=== PATIENT | male | born 1940 | race Native Hawaiian/Other Pacific Islander ===

== ENCOUNTER 2022-01-22 20:06 | Emergency (ER) | payer OTHER ==
[~2022-01-22] VITALS: Ht 180.3 cm; Wt 95.3 kg
[2022-01-22 21:09] LABS: PLATELET COUNT 139 K/uL (142-355)
[2022-01-22 21:17] LABS: POTASSIUM 4.2 mmol/L (3.6-5.2)
[2022-01-22 21:28] LABS: PARTIAL THROMBOPLASTIN TIME 25.5 SECONDS (24.5-33.6)
[2022-01-23 01:10] VITALS: BP 147/96; TEMP 98
== END 2022-01-23 01:10 | disposition short-term general hospital (02) ==
LOC: ED 20:06
PROVIDERS: Family Medicine
PROC: 2W3CX1Z Immobilization of Right Lower Arm using Splint (ICD-10-PCS; principal; 2022-01-22)
DX: I50.9 Heart failure, unspecified (principal); I48.91 Unspecified atrial fibrillation; I89.0 Lymphedema, not elsewhere classified; S50.311A Abrasion of right elbow, initial encounter; S60.511A Abrasion of right hand, initial encounter; S62.356A Nondisplaced fracture of shaft of fifth metacarpal bone, right hand, initial encounter for closed fracture; Z11.52 Encounter for screening for COVID-19; W18.39XA Other fall on same level, initial encounter; Y92.098 Other place in other non-institutional residence as the place of occurrence of the external cause
CPT/HCPCS: 36415; 80053; 82150; 82550; 83690; 83880; 84484; 85027; 85379; 85610; 85730; 87635; 90471; 90715; 93005; 94664; 96374; 99284; J1940; U0003

== ENCOUNTER 2022-10-03 09:57 | Emergency (ER) | payer OTHER ==
[~2022-10-03] VITALS: Ht 180.3 cm; Wt 88.9 kg
[2022-10-03 10:08] VITALS: TEMP 98.3
[2022-10-03 11:05] LABS: PLATELET COUNT 105 K/uL (142-355)
[2022-10-03 11:10] LABS: POTASSIUM 4.3 mmol/L (3.6-5.2)
[2022-10-03 14:09] VITALS: BP 157/88
== END 2022-10-03 14:13 | disposition home or self-care (01) ==
LOC: ED 09:57
PROVIDERS: Emergency Medicine Emergency Medical Services
DX: S60.221A Contusion of right hand, initial encounter (principal); S60.511A Abrasion of right hand, initial encounter; W18.39XA Other fall on same level, initial encounter; Y92.098 Other place in other non-institutional residence as the place of occurrence of the external cause
CPT/HCPCS: 80048; 81002; 83735; 84484; 85027; 85610; 93005; 99283